=== PATIENT | male | born 1990 ===

== ENCOUNTER 2016-12-06 22:07 | Emergency (ER) | payer SELFPAY ==
[2016-12-06 22:07] VITALS: BMI 23.3
[2016-12-06 22:12] VITALS: BP 144/76; PULSE 69; RESP 16; TEMP 98; O2SAT 98
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
--- NOTE | 2016-12-07 09:08 | RAD ---
PROCEDURE: Radiographs of the Chest and Right Ribs. HISTORY: pain right rib COMPARISON: None available. TECHNIQUE: Frontal radiograph of the chest and multiple oblique radiographs of the right ribs were obtained. FINDINGS: RIGHT RIBS: No fracture or focal lesion visualized. LUNGS: Clear. PLEURA: No pneumothorax or pleural fluid. CARDIOVASCULAR: Normal sized heart. No pulmonary vascular congestion. OTHER FINDINGS: None. IMPRESSION: Unremarkable radiographs of the chest and right ribs. No right rib fracture.
== END 2016-12-06 22:47 | disposition home or self-care (01) ==
LOC: C.ER 22:07
DX: S20.211A Contusion of right front wall of thorax, initial encounter (principal); W22.8XXA Striking against or struck by other objects, initial encounter

== ENCOUNTER 2017-01-14 08:50 | Emergency (ER) | payer OTHER ==
[2017-01-14 08:51] VITALS: BMI 23.3
[2017-01-14 09:18] VITALS: BP 102/63; PULSE 61; RESP 17; TEMP 97.7; O2SAT 99
--- NOTE | 2017-01-14 09:32 | C.PDOC ---
History Of Present Illness 26 year old male presents for evaluation of a new onset of bilateral eye swelling associated with itching for the past 4 days. Patient reports symptoms started after exposure to dust while at work, he think his mouth and tongue are swollen as well. Patient denies Hx of asthma, fever, headache, injury, fall , trauma, or other associated symptoms. NEW ONSET B/L EYE SWELL X 4 DAYS. ONSET AFTER EXPOSURE TO DUST WHILE @ WORK. + ITCH. THINKS HAVING MOUTH AND TONGUE SWELLING. DENIES HO ASTHMA, OTHER ASSOC SX EXAM NAD APPEARS COMFORTABLE HEENT +B/L MILD PERIORBITAL ANGIOEDEMA. CONJ CLEAR. NO EYE DC. NO RHINORRHEA NO LIP OR TONGUE SWELLING CTA B/L NO W/R/R NARD REMAINDER NEG Time Seen by Provider: 01/14/17 09:18 Chief Complaint (Nursing): Allergic Reaction History Per: Patient History/Exam Limitations: no limitations Onset/Duration Of Symptoms: Days Current Symptoms Are (Timing): Still Present Context: Other (Work) Possible Cause: Other (Dust) Associated Symptoms: Swelling (B/L eyes), Itching Recent travel outside of the [place]: No Additional History Per: Patient Past Medical History Reviewed: Historical Data, Nursing Documentation, Vital Signs Vital Signs: Last Vital Signs Temp 97.7 F 01/14/17 09:05 Pulse 61 01/14/17 09:05 Resp 17 01/14/17 09:05 BP 102/63 01/14/17 09:05 Pulse Ox 99 01/14/17 09:38 - Medical History PMH: No Chronic Diseases Surgical History: No Surg Hx - [facility] Procedures NONEXCIS DEBRID OF WOUND, INFECT, OR BURN (11/09/14) TETANUS TOXOID ADMINIST (11/09/14) Family History: States: Unknown Family Hx - Social History Hx Alcohol Use: Yes Hx Substance Use: No - Immunization History Hx Tetanus Toxoid Vaccination: No Hx Influenza Vaccination: No Hx Pneumococcal Vaccination: No Review Of Systems Constitutional: Negative for: Fever, Chills Eyes: Positive for: Other (B/L eye swelling) ENT: Positive for: Mouth Swelling (alleged). Negative for: Nose Discharge Cardiovascular: Negative for: Chest Pain, Palpitations Respiratory: Negative for: Cough, Shortness of Breath Gastrointestinal: Negative for: Nausea, Vomiting, Abdominal Pain Skin: Negative for: Rash Physical Exam - Physical Exam Appears: Non-toxic, No Acute Distress Skin: Normal Color, Warm, Dry Head: Atraumatic, Normacephalic Eye(s): bilateral: Other (Mild periorbital angioedema, conjuctiva clear, no eye d/c ) Nose: No Discharge, No Deformity Tongue: No Swelling Lips: No Swelling Throat: Normal, No Erythema, No Exudate Neck: Normal ROM, Supple Chest: Symmetrical Cardiovascular: Rhythm Regular, No Murmur Respiratory: Normal Breath Sounds, No Rales, No Rhonchi, No Wheezing Gastrointestinal/Abdominal: Soft, No Tenderness, No Guarding, No Rebound Back: No CVA Tenderness Extremity: Normal ROM, No Calf Tenderness, No Deformity, No Swelling Neurological/Psych: Oriented x3, Normal Speech, Normal Cognition ED Course And Treatment O2 Sat by Pulse Oximetry: 99 (On RA) Pulse Ox Interpretation: Normal Disposition Counseled Patient/Family Regarding: Diagnosis, Need For Followup, Rx Given - Disposition Referrals: [facility] [Outside] [facility] [Outside] Disposition: HOME/ ROUTINE Disposition Time: 09:32 Condition: GOOD Prescriptions: DiphenhydrAMINE [Benadryl] 50 mg PO TID PRN #30 cap PRN Reason: Itching / Pruritus predniSONE [Prednisone] 60 mg PO DAILY #15 tab Instructions: Urticaria (ED) Forms: [facility] (Jamaican) - Clinical Impression Clinical Impression: Angioedema, Allergic urticaria - Scribe Statement The provider has reviewed the documentation as recorded by the Scribe Cam Campos All medical record entries made by the Scribe were at my direction and personally dictated by me. I have reviewed the chart and agree that the record accurately reflects my personal performance of the history, physical exam, medical decision making, and the department course for this patient. I have also personally directed, reviewed, and agree with the discharge instructions and disposition.
== END 2017-01-14 10:00 | disposition home or self-care (01) ==
LOC: C.ER 08:50
DX: T78.3XXA Angioneurotic edema, initial encounter (principal)

== ENCOUNTER 2017-07-10 00:14 | Emergency (ER) | payer SELFPAY ==
[2017-07-10 00:15] VITALS: BMI 23.3
[2017-07-10 00:38] VITALS: TEMP 98.1
[2017-07-10] MEDS ORDERED: Belladonna-Phenobarbital PO STA (00:58)
[2017-07-10] MEDS ORDERED: Lactated Ringer's 1,000 ML IVB STA (00:59)
[2017-07-10] MEDS ORDERED: Belladonna-Phenobarbital ONE (01:13)
[2017-07-10] MEDS ORDERED: Lactated Ringer's 1,000 ML ONE (01:13)
[2017-07-10 01:30] LABS: BASO # 0.1 K/uL (0.0-0.2); BASO % 1.3 % (0.0-2.0); EOS # 0.1 K/uL (0.0-0.7); EOS % 1.5 % (0.0-4.0); HEMOGLOBIN 16.3 g/dL (12.0-18.0); LYMPH # 1.7 K/uL (1.0-4.3); LYMPH % 37.1 % (20.0-40.0); MEAN CELL VOLUME 91.1 fL (80.0-94.0); MEAN CORPUSCULAR HEMOGLOBIN 32.4 pg (27.0-31.0); MEAN CORPUSCULAR HGB CONC 35.6 g/dL (33.0-37.0); MEAN PLATELET VOLUME 9.2 fL (7.2-11.7); MONO # 0.5 K/uL (0.0-0.8); MONO % 10.8 % (0.0-10.0); NEUT # 2.3 K/uL (1.8-7.0); NEUT % 49.3 % (50.0-75.0); NRBC % 0.3 % (0.0-2.0); RBC 5.04 Mil/uL (4.40-5.90); RED CELL DISTRIBUTION WIDTH 12.5 % (11.5-14.5); WHITE BLOOD COUNT 4.7 K/uL (4.8-10.8)
[2017-07-10 01:41] LABS: ALB/GLOB RATIO 1.2 (1.0-2.1); ALBUMIN 4.2 g/dL (3.5-5.0); ALT/SGPT 55 U/L (21-72); AST/SGOT 41 U/L (17-59); BLOOD UREA NITROGEN 18 mg/dL (9-20); CALCIUM 8.7 mg/dl (8.6-10.4); GFR AFRICAN-AMERICAN > 60; GFR NON-AFRICAN AMERICAN > 60; LIPASE 55 U/L (23-300)
[2017-07-10 02:45] LABS: SQUAMOUS EPITHIAL < 1 /hpf (0-5); URINE BILIRUBIN NEGATIVE (NEGATIVE); URINE BLOOD NEGATIVE (NEGATIVE); URINE CLARITY Clear (Clear); URINE COLOR Yellow (YELLOW); URINE GLUCOSE (UA) NORMAL (Normal); URINE LEUKOCYTE ESTERASE NEG Leu/uL (Negative); URINE PROTEIN NEGATIVE (NEGATIVE); URINE UROBILINOGEN NORMAL mg/dL (0.2-1.0)
--- NOTE | 2017-07-10 02:56 | C.PDOC ---
Time Seen by Provider: 07/10/17 00:53 Chief Complaint (Nursing): Abdominal Pain History Per: Patient Onset/Duration Of Symptoms: Days (2) Current Symptoms Are (Timing): Still Present Location Of Pain/Discomfort: Diffuse, RUQ Quality Of Discomfort: Unable To Describe, "Pain" Associated Symptoms: Nausea, Vomiting, Diarrhea Alleviating Factors: None Recent travel outside of the [place]: No Additional History Per: Prior Records Past Medical History Reviewed: Historical Data, Nursing Documentation, Vital Signs Vital Signs: Last Vital Signs Temp 98.1 F 07/10/17 00:36 Pulse 78 07/10/17 00:36 Resp 16 07/10/17 00:36 BP 124/76 07/10/17 00:36 Pulse Ox 97 07/10/17 00:36 - Medical History PMH: No Chronic Diseases Surgical History: No Surg Hx - [facility] Procedures NONEXCIS DEBRID OF WOUND, INFECT, OR BURN (11/09/14) TETANUS TOXOID ADMINIST (11/09/14) Family History: States: Unknown Family Hx - Social History Hx Alcohol Use: Yes Hx Substance Use: No - Immunization History Hx Tetanus Toxoid Vaccination: No Hx Influenza Vaccination: No Hx Pneumococcal Vaccination: No Review Of Systems Except As Marked, All Systems Reviewed And Found Negative. Constitutional: Negative for: Fever, Weakness Cardiovascular: Negative for: Chest Pain Respiratory: Negative for: Shortness of Breath Gastrointestinal: Positive for: Nausea, Vomiting, Abdominal Pain, Diarrhea. Negative for: Melena, Hematochezia, Hematemesis Genitourinary: Negative for: Dysuria Musculoskeletal: Negative for: Neck Pain, Back Pain Skin: Negative for: Rash Neurological: Negative for: Weakness, Numbness Physical Exam - Physical Exam Appears: Non-toxic, No Acute Distress Skin: Normal Color, Warm, Dry, No Rash Head: Atraumatic, Normacephalic Eye(s): bilateral: Normal Inspection, PERRL, EOMI Neck: Normal ROM, Supple Cardiovascular: Rhythm Regular Respiratory: Normal Breath Sounds, No Accessory Muscle Use Gastrointestinal/Abdominal: Soft, No Tenderness Back: No CVA Tenderness Extremity: Normal ROM Neurological/Psych: Oriented x3, Normal Motor, Normal Sensation ED Course And Treatment - Laboratory Results Result Diagrams: 07/10/17 01:27 07/10/17 01:27 Lab Interpretation: No Acute Changes O2 Sat by Pulse Oximetry: 97 Pulse Ox Interpretation: Normal Progress Note: Pt feels better and wants to go home right now. Reevaluation Time: :57 Reassessment Condition: Improved Progress - Interventions Interventions:: Observation, Intravenous fluid - Medications Administered Oral: H-2 ervin - Data Reviewed Data Reviewed: Lab, Old records - Patient Status Patient status: Mostly improved - Continuity of Care Discussed patient case with:: Patient, ED Nurse - Patient Plan Patient Plan: Discharge, F/U with PCP Disposition Counseled Patient/Family Regarding: Studies Performed, Diagnosis, Need For Followup, Rx Given - Disposition Referrals: [facility] [Outside] Disposition: HOME/ ROUTINE Disposition Time: :57 Condition: IMPROVED Additional Instructions: Drink plenty of fluids. Follow up with your doctor or in the clinic. Return to the ER if you develop fever, not tolerating fluids, bloody or black stools, pain that moves to right lower side, worsening of symptoms or if you have any other concerns. Prescriptions: Famotidine [Pepcid] 20 mg PO BID #30 tab Ondansetron [Zofran] 4 mg PO Q8H PRN #15 tab PRN Reason: Nausea/Vomiting Instructions: Viral Gastroenteritis, Adult (DC) Print Language: CHILEAN - Clinical Impression Clinical Impression: Abdominal pain, Nausea, vomiting, and diarrhea
[2017-07-10 03:09] VITALS: BP 120/80; PULSE 70; RESP 14; O2SAT 99
== END 2017-07-10 03:08 | disposition home or self-care (01) ==
LOC: C.ER 00:14
DX: R10.9 Unspecified abdominal pain (principal); R11.2 Nausea with vomiting, unspecified; R19.7 Diarrhea, unspecified
CPT/HCPCS: 80053; 81001; 83690; 85025; 99284; J7120

== ENCOUNTER 2017-11-08 18:23 | Emergency (ER) | payer OTHER ==
[2017-11-08 18:24] VITALS: BMI 23.3
[2017-11-08 18:36] VITALS: TEMP 98.4
[2017-11-08] MEDS ORDERED: Albuterol 0.083% Inhal Sol (2.5 mg/3 mL) UD IH STA (18:51)
[2017-11-08] MEDS ORDERED: Albuterol 0.083% Inhal Sol (2.5 mg/3 mL) UD ONE (18:58)
--- NOTE | 2017-11-08 19:20 | C.PDOC ---
History Of Present Illness 27 y/o male comes in for evaluation of cold symptoms for 1 week associated with nasal congestion, runny nose, and a productive cough. Over the last 2 days he developed "bloody sputum". Otherwise, pt denies high fever, chills, recent travel, nasal bleeding, drooling, dysphagia, dyspnea, SOB, wheezing, chest pain , palpitation, abd. pain, N/V/D, back pain, UTi sx, denies weight loss, malaise. Ambulate to Ed for evaluation, not in any apparent distress. Time Seen by Provider: 11/08/17 18:33 Chief Complaint (Nursing): Cough, Cold, Congestion History Per: Patient History/Exam Limitations: no limitations Onset/Duration Of Symptoms: Days Current Symptoms Are (Timing): Still Present Sick Contacts (Context): None Recent travel outside of the [place]: No Past Medical History Reviewed: Historical Data, Nursing Documentation, Vital Signs Vital Signs: Last Vital Signs Temp 98.4 F 11/08/17 19:34 Pulse 78 11/08/17 19:34 Resp 18 11/08/17 19:34 BP 109/72 11/08/17 19:34 Pulse Ox 99 11/08/17 19:39 Surgical History: No Surg Hx - [facility] Procedures NONEXCIS DEBRID OF WOUND, INFECT, OR BURN (11/09/14) TETANUS TOXOID ADMINIST (11/09/14) Family History: States: Unknown Family Hx - Social History Hx Alcohol Use: Yes Hx Substance Use: No - Immunization History Hx Tetanus Toxoid Vaccination: No Hx Influenza Vaccination: No Hx Pneumococcal Vaccination: No Review Of Systems Except As Marked, All Systems Reviewed And Found Negative. Constitutional: Negative for: Fever, Chills Eyes: Negative for: Vision Change ENT: Positive for: Nose Discharge, Nose Congestion. Negative for: Other (nasal bleed) Cardiovascular: Negative for: Chest Pain Respiratory: Positive for: Cough, Hemoptysis, Sputum. Negative for: Shortness of Breath, Wheezing Gastrointestinal: Negative for: Nausea, Vomiting Neurological: Negative for: Weakness, Numbness, Headache, Dizziness Physical Exam - Physical Exam Appears: Well, Non-toxic, No Acute Distress Skin: Normal Color, Warm, Dry, No Rash Head: Normacephalic Eye(s): bilateral: PERRL Nose: No Flaring, Discharge (B/L congestion), No Epistaxis, No Deformity, Other (edematous intranasal mucosa B/L) Oral Mucosa: Moist, No Drooling Tongue: Normal Appearing Lips: Normal Appearing Throat: No Erythema, No Drooling Neck: Trachea Midline, Supple Cardiovascular: Rhythm Regular, No Murmur, No JVD Respiratory: No Decreased Breath Sounds, No Accessory Muscle Use, No Rales, No Rhonchi, No Stridor, No Wheezing Gastrointestinal/Abdominal: Soft, No Tenderness, No Distention, No Guarding, No Rebound Extremity: Normal ROM, No Deformity, No Swelling Neurological/Psych: Oriented x3, Normal Speech ED Course And Treatment O2 Sat by Pulse Oximetry: 99 (RA) Pulse Ox Interpretation: Normal - Radiology CXR: Interpreted by Me, Viewed By Me CXR Interpretation: Yes: No Acute Disease Progress Note: On re-evaluation, pt is afebrile, hemodynamicaly stable. non- toxic. PulsOEx 99% RA. ENT: No acute findings. Neck: Supple, (-) meningeal sign. Lungs: CTA B/L, BVS equal B/L. CVS: (+)S1S2, reg. Abd: benign, (-) guarding, (-) rebound. Neurologicaly intact. CXR review- no acute abnormalities. Pt has clinical findings c/w acute bronchitis. Pt advised, ref. to f/u with PMD in 2-3 days for re-eavl. return to ED if any worsening or new changes. Disposition Counseled Patient/Family Regarding: Studies Performed, Diagnosis, Need For Followup, Rx Given - Disposition Referrals: [facility] [Outside] Disposition: HOME/ ROUTINE Disposition Time: 19:18 Condition: STABLE Additional Instructions: Encourage fluids Take medication as prescribed Follow up with PMD, Pulmonology in 2-3 days for re-evaluation. return to ED if any worsening or new changes. 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 - Scribe Statement The provider has reviewed the documentation as recorded by the Scribe (Cintia Nichols) All medical record entries made by the Scribe were at my direction and personally dictated by me. I have reviewed the chart and agree that the record accurately reflects my personal performance of the history, physical exam, medical decision making, and the department course for this patient. I have also personally directed, reviewed, and agree with the discharge instructions and disposition.
[2017-11-08 19:35] VITALS: BP 109/72; PULSE 78; RESP 18
[2017-11-08 19:39] VITALS: O2SAT 99
--- NOTE | 2017-11-09 09:40 | RAD ---
Date of service: 11/08/2017 HISTORY: Cough COMPARISON: 01/06/2017 TECHNIQUE: Chest PA and lateral FINDINGS: LUNGS: No active pulmonary disease. PLEURA: No significant pleural effusion identified. No pneumothorax apparent. CARDIOVASCULAR: Normal. OSSEOUS STRUCTURES: No significant abnormalities. VISUALIZED UPPER ABDOMEN: Normal. OTHER FINDINGS: None. IMPRESSION: No active disease. No significant interval change compared to the prior examination(s). Concordant results with the preliminary interpretation rendered by the emergency department physician procedure.
== END 2017-11-08 19:40 | disposition home or self-care (01) ==
LOC: C.ER 18:23
DX: J40 Bronchitis, not specified as acute or chronic (principal); F17.290 Nicotine dependence, other tobacco product, uncomplicated

== ENCOUNTER 2018-02-06 17:58 | Emergency (ER) | payer SELFPAY ==
[2018-02-06 17:58] VITALS: BMI 23.3
[2018-02-06 18:27] VITALS: BP 102/64; PULSE 78; RESP 18; TEMP 98.6; O2SAT 99
--- NOTE | 2018-02-06 19:00 | C.PDOC ---
History Of Present Illness 27 year old male presents to the ED complaining of cyst to right hand for 4 weeks. Reports mild pain with movement of hand. Denies any trauma, fever, weakness, numbness, or tingling. Right hand dominant. Time Seen by Provider: 02/06/18 18:32 Chief Complaint (Nursing): Finger,Hand,&Wrist History Per: Patient History/Exam Limitations: no limitations Onset/Duration Of Symptoms: Days Current Symptoms Are (Timing): Still Present Quality: "Pain" Exacerbating Factor(s): Movement Past Medical History Reviewed: Historical Data, Nursing Documentation, Vital Signs Vital Signs: Last Vital Signs Temp 98.6 F 02/06/18 18:20 Pulse 78 02/06/18 18:20 Resp 18 02/06/18 18:20 BP 102/64 02/06/18 18:20 Pulse Ox 99 02/06/18 18:20 - Medical History PMH: No Chronic Diseases Surgical History: No Surg Hx - [facility] Procedures NONEXCIS DEBRID OF WOUND, INFECT, OR BURN (11/09/14) TETANUS TOXOID ADMINIST (11/09/14) Family History: States: No Known Family Hx - Social History Hx Alcohol Use: Yes Hx Substance Use: No - Immunization History Hx Tetanus Toxoid Vaccination: No Hx Influenza Vaccination: No Hx Pneumococcal Vaccination: No Review Of Systems Musculoskeletal: Positive for: Hand Pain (cyst to right hand ) Neurological: Negative for: Weakness, Numbness Physical Exam - Physical Exam Appears: Non-toxic, No Acute Distress Skin: Warm, Dry Head: Normacephalic Eye(s): bilateral: Normal Inspection, EOMI Nose: Normal Oral Mucosa: Moist Neck: Supple Chest: Symmetrical Respiratory: No Accessory Muscle Use Extremity: Normal ROM, No Tenderness, Capillary Refill (less than 2 sec to right wrist), No Swelling, Other (0.5cm non-erythematous non-tender mobile mass to anterior radial aspect of right wrist) Pulses: Left Radial: Normal, Right Radial: Normal Neurological/Psych: Oriented x3, Normal Speech, Normal Motor, Normal Sensation Gait: Steady ED Course And Treatment O2 Sat by Pulse Oximetry: 99 (RA) Pulse Ox Interpretation: Normal Progress Note: On reassessment, patient is resting comfortably, and is in no acute distress. Patient given Rx. for Naproxen. Instructed to take medications as prescribed. Patient was instructed to follow up with physician/clinic in 1-2 days for further evaluation. Disposition - Disposition Referrals: Ventura Fernandez MD [Staff Provider] - Disposition: HOME/ ROUTINE Disposition Time: 18:58 Condition: STABLE Additional Instructions: Follow up with referral physician in 1-2 days without fail for further evaluation. Take medications as prescribed. Return to the emergency department at any time if symptoms persist or worsen. 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 - Scribe Statement The provider has reviewed the documentation as recorded by the Scribtheresa Frye All medical record entries made by the Gris were at my direction and p ersonally dictated by me. I have reviewed the chart and agree that the record accurately reflects my personal performance of the history, physical exam, medical decision making, and the department course for this patient. I have also personally directed, reviewed, and agree with the discharge instructions and disposition.
== END 2018-02-06 19:18 | disposition home or self-care (01) ==
LOC: C.ER 17:58
DX: M67.431 Ganglion, right wrist (principal)